=== PATIENT | male | born 1995 | race Caucasian/White ===

== ENCOUNTER 2018-01-22 02:23 | Emergency (ER) | payer MEDICAID ==
[~2018-01-22] VITALS: Ht 177.8 cm; Wt 72.6 kg
[2018-01-22 02:30] VITALS: Ht 177.8 cm; Wt 72.6 kg
[2018-01-22 04:36] VITALS: BP 118/75
== END 2018-01-22 04:36 | disposition home or self-care (01) ==
LOC: ED 02:23
DX: J20.9 Acute bronchitis, unspecified (principal); J45.909 Unspecified asthma, uncomplicated
CPT/HCPCS: J7613; Q0092